=== PATIENT | male | born 1970 | race Caucasian/White ===

== ENCOUNTER → 2017-01-30 | Outpatient (CLI) | payer OTHER ==
[~2017-01-30] MED LIST: ESCITALOPRAM OX10 MG PO; MOTRIN800 MG PO; NAPROSYN500 MG PO; NAPROXEN500 MG PO; PERCOCET 5/31 TABLET PO; VITAMIN D35000 UNIT PO; ZOLOFT50 MG PO
== END | disposition home or self-care (01) ==
LOC: RAD 09:05
DX: Z02.71 Encounter for disability determination (principal)
CPT/HCPCS: 71020

== ENCOUNTER → 2017-02-06 | Outpatient (CLI) | payer OTHER | END | disposition home or self-care (01) | LOC: RES 07:45 | DX: Z02.71 Encounter for disability determination (principal) | CPT/HCPCS: 94010; 94760 ==

== ENCOUNTER 2017-02-26 19:13 | Inpatient (IN) | payer OTHER ==
[2017-02-26] VITALS (8 sets, daily range): BP systolic 137–171; BP diastolic 86–103
[~2017-02-26] VITALS: Ht 177.8 cm; Wt 144.6 kg
[2017-02-26 19:44] LABS: BASE EXCESS -11.6 mEq/L (-3 to +3); BICARBONATE 18.2 mEq/L (22-26); CARBOXY HGB 6.2 % (0-5); METHEMOGLOBIN 0.9 % (0-1.5); PCO2 56 mm Hg (35-45); PO2 145 mm Hg (80-100)
[2017-02-26 19:45] LABS: COMMENTS - BLOOD GASES c=<; DEVICE PB840; FI02 100 %; MECHANICAL RATE 18 resp/min; MODE AC; PEEP 5 CM/H20; SITE LB; TIDAL VOLUME 600 ML; pH 7.12 (7.35-7.45)
[2017-02-26 19:49] LABS: MCH 30.6 PG (29.0-34.0); MCHC 32.8 G/DL (30.0-36.0); MCV 93.3 FL (86-99); MEAN PLAT.VOLUME 12.4 uM^3 (9.0-12.4); NRBC (%) 0.7 /100 WBC (0-0); RBC DIS.WIDTH-CV 15.1 % (11.8-14.6); RBC DIS.WIDTH-SD 51.9 % (39-53); RED BLOOD COUNT 4.61 M/uL (4.00-5.50); WHITE BLOOD COUNT 21.2 K/uL (4.1-10.2)
[2017-02-26 19:59] LABS: CHLORIDE 104 mEq/L (99-109); POTASSIUM 3.4 mEq/L (3.7-5.4); SODIUM 140 mEq/L (136-147)
[2017-02-26 20:01] LABS: AMYLASE 183 IU/L (1-118)
[2017-02-26 20:02] LABS: GLUCOSE 204 mg/dL (70-99); PROTHROMBIN TIME 10.4 (9.2-11.2); PTT 24.5 (25-32)
[2017-02-26 20:03] LABS: ANION GAP 19 MEQ/L (2-14); TOTAL BILIRUBIN 0.2 mg/dL (0.0-1.0)
[2017-02-26 20:04] LABS: SERUM ETHYL ALCOHOL 82 mg/dL
[2017-02-26 20:05] LABS: GFR ESTIMATE (CALCULATED) 59 mL/min/
[2017-02-26 20:06] LABS: ADD MIUA? YES; BILIRUBIN NEGATIVE; BLOOD SMALL; COLOR YELLOW ((YELLOW)); GLUCOSE (STRIP) NEGATIVE; KETONES NEGATIVE; LEUKOCYTES NEGATIVE; NITRITE NEGATIVE; PROTEIN (STRIP) 100; SPECIFIC GRAVITY 1.006 (1.000-1.030); UROBILINOGEN 0.2 MG/DL (0.2-1.0)
[2017-02-26 20:06] LABS: ALKALINE PHOSPHATASE 104 IU/L (3-129)
[2017-02-26 20:07] LABS: DIRECT BILIRUBIN 0.1 mg/dL (0.0-0.3); UREA NITROGEN (BUN) 8 mg/dL (9-23)
[2017-02-26 20:09] LABS: SALICYLATE < 5.0 MG/DL (15-30)
[2017-02-26 20:10] LABS: LIPASE 337 U/L (1.0-51.0); TROP-I INTERPRETATION NEGATIVE; TROPONIN-I < 0.01 ng/mL (0.0-0.30)
[2017-02-26 20:13] LABS: AMPHETAMINE NEGATIVE (500 ng/mL); BARBITURATES NEGATIVE (200 ng/mL); BENZODIAZEPINES NEGATIVE (150 ng/mL); COCAINE NEGATIVE (150 ng/mL); INTERNAL CONTROLS VALID? YES; METHADONE NEGATIVE (200 ng/mL); METHAMPHETAMINE NEGATIVE (500 ng/mL); OPIATES (MORPHINE) NEGATIVE (100 ng/mL); OXYCODONE NEGATIVE (100 ng/mL); PHENCYCLIDINE NEGATIVE (25 ng/mL); PROPOXYPHENE NEGATIVE (300 ng/mL); THC CANNABINOIDS NEGATIVE (50 ng/mL); TRICYCLIC ANTIDEPRESSANTS NEGATIVE (300 ng/mL)
[2017-02-26 20:25] LABS: BACTERIA RARE /HPF; CASTS PRESENT /LPF; CRYSTALS PRESENT; EPITHELIAL CELLS 1+ /HPF; MUCUS NONE SEEN /LPF; RED BLOOD CELLS 0-5 /HPF (0-5); UCUL ADDED? NO
[2017-02-26 20:26] LABS: AMORPHOUS URATES CRYSTALS 3+; COARSE GRANULAR CASTS 0-5 /LPF; FINE GRANULAR CASTS 15-20 /LPF
[2017-02-26 20:47] LABS: ABS NEUTROPHIL COUNT 13.7; ANISOCYTOSIS 1+; ATYPICAL LYMPHOCYTE 2.3 %; BAND NEUTROPHILS 6.6 % (0-8.0); EOSINOPHIL ABS CT 0.1; EOSINOPHILS 0.5 % (0-5.0); HEMATOLOGY COMMENT 1 SN; INSTRUMENT ABS NEUTROPHIL CT 12.2 K/uL; LYMPHOCYTES 28.6 % (15.0-45.0); MACROCYTES 1+; METAMYELOCYTES 1.5 %; NUCLEATED RBC'S 1.4; PLATELET CLUMPS PRESENT - PLATELET COUNT APPEARS ADQ.; POLYCHROMASIA 1+; SEG.NEUTROPHILS 58.1 % (46.0-76.0)
[2017-02-26 22:13] LABS: MAGNESIUM 2.7 mg/dL (1.3-2.7)
[2017-02-26 23:29] LABS: POINT-OF-CARE METER ID UU14174217
[2017-02-26 23:36] LABS: METH RESISTANT S AUREUS PCR NEGATIVE (NEGATIVE)
[2017-02-26 23:38] LABS: PROBE CHECK PASS; SPECIMEN PROCESSING CONTROL PASS
[2017-02-27] VITALS (26 sets, daily range): BP systolic 100–146; BP diastolic 57–102
[2017-02-27 00:11] LABS: BASE EXCESS -8.9 mEq/L (-3 to +3); BICARBONATE 18.8 mEq/L (22-26); CARBOXY HGB 2.4 % (0-5); METHEMOGLOBIN 1.9 % (0-1.5); PCO2 46 mm Hg (35-45); PO2 132 mm Hg (80-100); pH 7.22 (7.35-7.45)
[2017-02-27 00:12] LABS: COMMENTS - BLOOD GASES A+C+; DEVICE 840; FI02 100 %; MECHANICAL RATE 18 resp/min; MODE AC; PEEP 10 CM/H20; SITE RR; TIDAL VOLUME 600 ML; TOTAL RESP RATE 35 resp/min
[2017-02-27 01:03] LABS: HEMATOCRIT 46.3 % (38.0-50.0); MCH 30.5 PG (29.0-34.0); MCHC 32.8 G/DL (30.0-36.0); MEAN PLAT.VOLUME 11.9 uM^3 (9.0-12.4); NRBC (%) 0.1 /100 WBC (0-0); PLATELET COUNT 192 K/uL (156-360); RBC DIS.WIDTH-CV 15.4 % (11.8-14.6); RBC DIS.WIDTH-SD 53.1 % (39-53); RED BLOOD COUNT 4.98 M/uL (4.00-5.50); WHITE BLOOD COUNT 26.3 K/uL (4.1-10.2)
[2017-02-27 01:12] LABS: INTER. NORMALIZED RATIO 1.1; PROTHROMBIN TIME 11.1 (9.2-11.2); PTT 26.6 (25-32)
[2017-02-27 01:13] LABS: CHLORIDE 110 mEq/L (99-109); POTASSIUM 3.4 mEq/L (3.7-5.4); SODIUM 140 mEq/L (136-147)
[2017-02-27 01:16] LABS: ANION GAP 10 MEQ/L (2-14)
[2017-02-27 01:19] LABS: GFR ESTIMATE (CALCULATED) 59 mL/min/
[2017-02-27 01:20] LABS: UREA NITROGEN (BUN) 11 mg/dL (9-23)
[2017-02-27 01:21] LABS: GLUCOSE 103 mg/dL (70-99)
[2017-02-27 01:25] LABS: TROP-I INTERPRETATION NEGATIVE; TROPONIN-I 0.05 ng/mL (0.0-0.30)
[2017-02-27 02:34] LABS: BASOPHIL COUNT 0.1 K/uL (0-0.1); EOSINOPHIL (%) 0 % (0-5); HEMATOLOGY COMMENT 1 SMEAR COMPATIBLE; IMMATURE GRANULOCYTE (%) 1.2 % (0.0-0.7); IMMATURE GRANULOCYTE COUNT 0.3 K/uL; INSTRUMENT ABS NEUTROPHIL CT 23.9 K/uL; LYMPHOCYTE COUNT 0.7 K/uL (1.0-2.8); MONOCYTE (%) 5.1 % (3-12); MONOCYTE COUNT 1.3 K/uL (0-0.8); NEUTROPHIL (%) 90.8 % (45-76); NEUTROPHIL COUNT 23.9 K/uL (1.8-6.4); PLAT.SUFFICIENCY ADEQUATE
[2017-02-27 05:22] LABS: BICARBONATE 16.6 mEq/L (22-26); CARBOXY HGB 2.1 % (0-5); METHEMOGLOBIN 1.7 % (0-1.5); PCO2 51 mm Hg (35-45); PO2 69 mm Hg (80-100); pH 7.12 (7.35-7.45)
[2017-02-27 05:23] LABS: COMMENTS - BLOOD GASES A+C+; DEVICE 840VENT; FI02 60 %; MECHANICAL RATE 18 resp/min; MODE AC; PEEP 10 CM/H20; SITE RR; TIDAL VOLUME 600 ML; TOTAL RESP RATE 32 resp/min
[2017-02-27 06:17] LABS: INTER. NORMALIZED RATIO 1.1; PROTHROMBIN TIME 10.7 (9.2-11.2); PTT 27.2 (25-32)
[2017-02-27 06:30] LABS: TROP-I INTERPRETATION NEGATIVE; TROPONIN-I 0.03 ng/mL (0.0-0.30)
[2017-02-27 06:49] LABS: HEMATOCRIT 47.2 % (38.0-50.0); MCH 30.1 PG (29.0-34.0); MCHC 31.6 G/DL (30.0-36.0); MCV 95.4 FL (86-99); MEAN PLAT.VOLUME 12.3 uM^3 (9.0-12.4); NRBC (%) 0.1 /100 WBC (0-0); PLATELET COUNT 185 K/uL (156-360); RBC DIS.WIDTH-CV 15.2 % (11.8-14.6); RBC DIS.WIDTH-SD 53.6 % (39-53); RED BLOOD COUNT 4.95 M/uL (4.00-5.50); WHITE BLOOD COUNT 29.1 K/uL (4.1-10.2)
[2017-02-27 07:19] LABS: ANION GAP 16 MEQ/L (2-14); CHLORIDE 109 MEQ/L (99-109); GFR ESTIMATE (CALCULATED) 54 mL/min/; GLUCOSE 131 mg/dL (70-99); MAGNESIUM 2.5 mg/dl (1.3-2.7); SAMPLE HEMOLYSIS CHECK 0; SAMPLE ICTERIC CHECK 0; SAMPLE LIPEMIA CHECK 0; SODIUM 143 MEQ/L (136-147); UREA NITROGEN (BUN) 13 mg/dL (9-23)
[2017-02-27 07:20] LABS: POTASSIUM 4.3 MEQ/L (3.7-5.4)
[2017-02-27 07:59] LABS: ABS NEUTROPHIL COUNT 26.3; ANISOCYTOSIS 1+; EOSINOPHIL ABS CT 0.3; INSTRUMENT ABS NEUTROPHIL CT 26.8 K/uL; METAMYELOCYTES 1.5 %; PLAT.SUFFICIENCY ADEQUATE; SEG.NEUTROPHILS 73.5 % (46.0-76.0)
[2017-02-27 13:35] LABS: TROP-I INTERPRETATION NEGATIVE; TROPONIN-I < 0.01 ng/mL (0.0-0.30)
[2017-02-27] MEDS ORDERED: TRILEPTAL300 MG PO (14:37)
[2017-02-27 14:38] LABS: HEMATOCRIT 42.6 % (38.0-50.0); MCH 30.9 PG (29.0-34.0); MCHC 32.4 G/DL (30.0-36.0); MCV 95.3 FL (86-99); MEAN PLAT.VOLUME 12.8 uM^3 (9.0-12.4); NRBC (%) 0.1 /100 WBC (0-0); PLATELET COUNT 152 K/uL (156-360); RBC DIS.WIDTH-CV 15.5 % (11.8-14.6); RBC DIS.WIDTH-SD 54.1 % (39-53); RED BLOOD COUNT 4.47 M/uL (4.00-5.50)
[2017-02-27] MEDS ORDERED: TOPAMAX25 MG PO (14:38)
[2017-02-27] MEDS ORDERED: ZANTAC150 MG PO (14:39)
[2017-02-27] MEDS ORDERED: WELLBUTRIN XL150 MG PO (14:39)
[2017-02-27] MEDS ORDERED: TYLENOL REGULA325 MG PO (14:40)
[2017-02-27] MEDS ORDERED: VENTOLIN HFA18 GM IH (14:41)
[2017-02-27 15:03] LABS: INTER. NORMALIZED RATIO 1.4; PROTHROMBIN TIME 14.9 (9.2-11.2); PTT 30.9 (25-32)
[2017-02-27 15:22] LABS: ANION GAP 15 MEQ/L (2-14); CHLORIDE 110 MEQ/L (99-109); GFR ESTIMATE (CALCULATED) > 59 mL/min/; GLUCOSE 171 mg/dL (70-99); MAGNESIUM 2.2 mg/dl (1.3-2.7); POTASSIUM 4.4 MEQ/L (3.7-5.4); SAMPLE HEMOLYSIS CHECK 0; SAMPLE ICTERIC CHECK 0; SAMPLE LIPEMIA CHECK 0; SODIUM 145 MEQ/L (136-147); UREA NITROGEN (BUN) 14 mg/dL (9-23)
[2017-02-27 15:39] LABS: ABS NEUTROPHIL COUNT 20.7; EOSINOPHIL ABS CT 0; INSTRUMENT ABS NEUTROPHIL CT 20.1 K/uL; LYMPHOCYTES 2.6 % (15.0-45.0); SEG.NEUTROPHILS 66.9 % (46.0-76.0)
[2017-02-27 16:09] LABS: BASE EXCESS -5.7 mEq/L (-3 to +3); BICARBONATE 19.4 mEq/L (22-26); CARBOXY HGB 1.8 % (0-5); METHEMOGLOBIN 1.6 % (0-1.5); PCO2 36 mm Hg (35-45); PO2 69 mm Hg (80-100); pH 7.34 (7.35-7.45)
[2017-02-27 16:11] LABS: DEVICE VENT; FI02 60 %; MECHANICAL RATE 24 resp/min; MODE AC; SITE A LINE; TOTAL RESP RATE 24 resp/min
[2017-02-27 16:12] LABS: PEEP 10 CM/H20; TIDAL VOLUME 600 ML
[2017-02-27 17:49] LABS: HEMATOCRIT 39.9 % (38.0-50.0); MCH 30.2 PG (29.0-34.0); MCHC 33.6 G/DL (30.0-36.0); RBC DIS.WIDTH-CV 15.2 % (11.8-14.6); RBC DIS.WIDTH-SD 49.9 % (39-53); RED BLOOD COUNT 4.43 M/uL (4.00-5.50); WHITE BLOOD COUNT 23.5 K/uL (4.1-10.2)
[2017-02-27 17:53] LABS: CHLORIDE 112 mEq/L (99-109); SODIUM 140 mEq/L (136-147)
[2017-02-27 17:54] LABS: MAGNESIUM 2.1 mg/dL (1.3-2.7); POTASSIUM 3.4 mEq/L (3.7-5.4)
[2017-02-27 17:55] LABS: GLUCOSE 131 mg/dL (70-99)
[2017-02-27 17:56] LABS: ANION GAP 5 MEQ/L (2-14)
[2017-02-27 17:59] LABS: GFR ESTIMATE (CALCULATED) > 59 mL/min/
[2017-02-27 18:00] LABS: UREA NITROGEN (BUN) 16 mg/dL (9-23)
[2017-02-27 18:01] LABS: INTER. NORMALIZED RATIO 1.1; PROTHROMBIN TIME 10.7 (9.2-11.2); PTT 28.9 (25-32)
[2017-02-27 18:06] LABS: TROP-I INTERPRETATION NEGATIVE; TROPONIN-I < 0.01 ng/mL (0.0-0.30)
[2017-02-27 18:29] LABS: EOSINOPHIL (%) 0 % (0-5); IMMATURE GRANULOCYTE (%) 0.8 % (0.0-0.7); IMMATURE GRANULOCYTE COUNT 0.2 K/uL; INSTRUMENT ABS NEUTROPHIL CT 21.6 K/uL; MEAN PLAT.VOLUME 12.3 uM^3 (9.0-12.4); MONOCYTE (%) 3.1 % (3-12); MONOCYTE COUNT 0.7 K/uL (0-0.8); NEUTROPHIL (%) 91.6 % (45-76); NEUTROPHIL COUNT 21.6 K/uL (1.8-6.4); PLAT.SUFFICIENCY ADEQUATE; PLATELET COUNT 164 K/uL (156-360)
[2017-02-27 18:30] LABS: MCV 90.1 FL (86-99)
[2017-02-27 23:20] LABS: BASE EXCESS -1.3 mEq/L (-3 to +3); BICARBONATE 22.7 mEq/L (22-26); CARBOXY HGB 1.6 % (0-5); COMMENTS - BLOOD GASES C+; DEVICE 840; FI02 60 %; MECHANICAL RATE 24 resp/min; METHEMOGLOBIN 1.5 % (0-1.5); MODE AC; PCO2 35 mm Hg (35-45); PEEP 10 CM/H20; PO2 63 mm Hg (80-100); SITE RR ALINE; TIDAL VOLUME 600 ML; TOTAL RESP RATE 24 resp/min; pH 7.42 (7.35-7.45)
[2017-02-28] VITALS: BP 126/73
[2017-02-28 01:03] LABS: POINT-OF-CARE METER ID UU14162636
[2017-02-28 01:23] LABS: HEMATOCRIT 37.6 % (38.0-50.0); MCH 30.3 PG (29.0-34.0); MCHC 33.8 G/DL (30.0-36.0); MCV 89.7 FL (86-99); MEAN PLAT.VOLUME 12.6 uM^3 (9.0-12.4); PLATELET COUNT 157 K/uL (156-360); RED BLOOD COUNT 4.19 M/uL (4.00-5.50); WHITE BLOOD COUNT 22.6 K/uL (4.1-10.2)
[2017-02-28 01:33] LABS: INTER. NORMALIZED RATIO 1.1; PROTHROMBIN TIME 11.4 (9.2-11.2); PTT 31.4 (25-32)
[2017-02-28 01:35] LABS: CHLORIDE 108 mEq/L (99-109); POTASSIUM 2.9 mEq/L (3.7-5.4); SODIUM 140 mEq/L (136-147)
[2017-02-28 01:36] LABS: MAGNESIUM 1.9 mg/dL (1.3-2.7)
[2017-02-28 01:37] LABS: GLUCOSE 148 mg/dL (70-99)
[2017-02-28 01:39] LABS: ANION GAP 11 MEQ/L (2-14)
[2017-02-28 01:41] LABS: GFR ESTIMATE (CALCULATED) > 59 mL/min/
[2017-02-28 01:42] LABS: UREA NITROGEN (BUN) 17 mg/dL (9-23)
[2017-02-28 03:10] LABS: ABS NEUTROPHIL COUNT 20.8; ACANTHOCYTES 1+; ANISOCYTOSIS 1+; BAND NEUTROPHILS 16.6 % (0-8.0); BASOPHILS 0.4 %; BURR CELLS 1+; EOSINOPHIL ABS CT 0; INSTRUMENT ABS NEUTROPHIL CT 20.6 K/uL; LYMPHOCYTES 2.2 % (15.0-45.0); MACROCYTES 1+; METAMYELOCYTES 2.2 %; PLAT.SUFFICIENCY ADEQUATE; PLATELET CLUMPS PRESENT - PLATELET COUNT APPEARS ADQ.; POIKILOCYTOSIS 1+; POLYCHROMASIA 1+; SEG.NEUTROPHILS 75.5 % (46.0-76.0); TEAR DROP CELLS 1+
[2017-02-28 04:00] VITALS: BP 132/71
[2017-02-28 06:08] LABS: INTER. NORMALIZED RATIO 1.1; PROTHROMBIN TIME 11.2 (9.2-11.2); PTT 31.3 (25-32)
[2017-02-28 06:09] LABS: BASE EXCESS -0.6 mEq/L (-3 to +3); BICARBONATE 23.1 mEq/L (22-26); CARBOXY HGB 1.9 % (0-5); COMMENTS - BLOOD GASES C+; DEVICE 840; FI02 60 %; METHEMOGLOBIN 1.6 % (0-1.5); MODE AC; PCO2 34 mm Hg (35-45); PO2 66 mm Hg (80-100); SITE RR ALINE; pH 7.44 (7.35-7.45)
[2017-02-28 06:10] LABS: MECHANICAL RATE 24 resp/min; PEEP 10 CM/H20; TIDAL VOLUME 600 ML; TOTAL RESP RATE 27 resp/min
[2017-02-28 06:14] LABS: POINT-OF-CARE METER ID UU14162636
[2017-02-28 06:59] LABS: HEMATOCRIT 35.5 % (38.0-50.0); MCHC 34.6 G/DL (30.0-36.0); MCV 89.4 FL (86-99); MEAN PLAT.VOLUME 12.5 uM^3 (9.0-12.4); PLATELET COUNT 143 K/uL (156-360); RBC DIS.WIDTH-CV 15.2 % (11.8-14.6); RBC DIS.WIDTH-SD 50.1 % (39-53); RED BLOOD COUNT 3.97 M/uL (4.00-5.50); WHITE BLOOD COUNT 22.6 K/uL (4.1-10.2)
[2017-02-28 07:17] LABS: ANION GAP 11 MEQ/L (2-14); CHLORIDE 109 MEQ/L (99-109); GFR ESTIMATE (CALCULATED) > 59 mL/min/; GLUCOSE 127 mg/dL (70-99); MAGNESIUM 2.4 mg/dl (1.3-2.7); SAMPLE HEMOLYSIS CHECK 0; SAMPLE ICTERIC CHECK 0; SAMPLE LIPEMIA CHECK 0; SODIUM 142 MEQ/L (136-147); UREA NITROGEN (BUN) 17 mg/dL (9-23)
[2017-02-28 07:19] LABS: POTASSIUM 3.6 MEQ/L (3.7-5.4)
[2017-02-28 08:00] VITALS: BP 139/90
[2017-02-28 08:00] LABS: EOSINOPHIL (%) 0 % (0-5); IMMATURE GRANULOCYTE COUNT 0.2 K/uL; INSTRUMENT ABS NEUTROPHIL CT 20.6 K/uL; MONOCYTE (%) 3.2 % (3-12); MONOCYTE COUNT 0.7 K/uL (0-0.8); NEUTROPHIL (%) 91.2 % (45-76); NEUTROPHIL COUNT 20.6 K/uL (1.8-6.4)
[2017-02-28 12:00] VITALS: BP 127/70
[2017-02-28 12:54] LABS: MCH 30.6 PG (29.0-34.0); MCHC 34.2 G/DL (30.0-36.0); MCV 89.6 FL (86-99); MEAN PLAT.VOLUME 12.5 uM^3 (9.0-12.4); PLATELET COUNT 152 K/uL (156-360); RBC DIS.WIDTH-CV 15.1 % (11.8-14.6); RBC DIS.WIDTH-SD 49.3 % (39-53); RED BLOOD COUNT 4.02 M/uL (4.00-5.50); WHITE BLOOD COUNT 23.4 K/uL (4.1-10.2)
[2017-02-28 13:04] LABS: CHLORIDE 111 mEq/L (99-109); INTER. NORMALIZED RATIO 1.1; POTASSIUM 3.2 mEq/L (3.7-5.4); PROTHROMBIN TIME 11.4 (9.2-11.2); PTT 31.5 (25-32); SODIUM 143 mEq/L (136-147)
[2017-02-28 13:05] LABS: MAGNESIUM 2.4 mg/dL (1.3-2.7)
[2017-02-28 13:06] LABS: GLUCOSE 142 mg/dL (70-99)
[2017-02-28 13:07] LABS: ANION GAP 13 MEQ/L (2-14)
[2017-02-28 13:10] LABS: GFR ESTIMATE (CALCULATED) > 59 mL/min/
[2017-02-28 13:11] LABS: UREA NITROGEN (BUN) 16 mg/dL (9-23)
[2017-02-28 13:29] LABS: POINT-OF-CARE METER ID UU13113731
[2017-02-28 14:02] LABS: ABS NEUTROPHIL COUNT 22.5; ANISOCYTOSIS 1+; ATYPICAL LYMPHOCYTE 0.4 %; BAND NEUTROPHILS 25.7 % (0-8.0); BURR CELLS 1+; EOSINOPHIL ABS CT 0; INSTRUMENT ABS NEUTROPHIL CT 21.4 K/uL; LYMPHOCYTES 1.3 % (15.0-45.0); MACROCYTES 1+; PLAT.SUFFICIENCY ADEQUATE; POIKILOCYTOSIS 1+; SEG.NEUTROPHILS 70.3 % (46.0-76.0); SPHEROCYTES 1+; TARGET CELLS 1+
[2017-02-28 14:12] LABS: BASE EXCESS -2.4 mEq/L (-3 to +3); BICARBONATE 21.2 mEq/L (22-26); CARBOXY HGB 1.6 % (0-5); METHEMOGLOBIN 1.5 % (0-1.5); PCO2 32 mm Hg (35-45); PO2 68 mm Hg (80-100); pH 7.43 (7.35-7.45)
[2017-02-28 14:13] LABS: DEVICE VENT; FI02 60 %; MECHANICAL RATE 24 resp/min; MODE AC; SITE A LINE; TOTAL RESP RATE 26 resp/min
[2017-02-28 14:14] LABS: PEEP 10 CM/H20; TIDAL VOLUME 600 ML
[2017-02-28 16:00] VITALS: BP 132/85
[2017-02-28 17:27] LABS: POINT-OF-CARE METER ID UU13113731
[2017-02-28 18:39] LABS: MCH 30.4 PG (29.0-34.0); MCHC 34.2 G/DL (30.0-36.0); MCV 89.1 FL (86-99); MEAN PLAT.VOLUME 12.9 uM^3 (9.0-12.4); PLATELET COUNT 151 K/uL (156-360); RBC DIS.WIDTH-CV 15.1 % (11.8-14.6); RBC DIS.WIDTH-SD 49.6 % (39-53); RED BLOOD COUNT 4.04 M/uL (4.00-5.50); WHITE BLOOD COUNT 22.6 K/uL (4.1-10.2)
[2017-02-28 18:50] LABS: CHLORIDE 110 mEq/L (99-109); POTASSIUM 3.7 mEq/L (3.7-5.4); SODIUM 141 mEq/L (136-147)
[2017-02-28 18:51] LABS: MAGNESIUM 2.3 mg/dL (1.3-2.7)
[2017-02-28 18:52] LABS: GLUCOSE 120 mg/dL (70-99)
[2017-02-28 18:53] LABS: INTER. NORMALIZED RATIO 1.1; PROTHROMBIN TIME 11.2 (9.2-11.2)
[2017-02-28 18:54] LABS: ANION GAP 10 MEQ/L (2-14)
[2017-02-28 18:56] LABS: GFR ESTIMATE (CALCULATED) > 59 mL/min/
[2017-02-28 18:57] LABS: UREA NITROGEN (BUN) 15 mg/dL (9-23)
[2017-02-28 19:00] VITALS: BP 132/85
[2017-02-28 21:50] LABS: ABS NEUTROPHIL COUNT 20.5; ANISOCYTOSIS 1+; BAND NEUTROPHILS 21.5 % (0-8.0); EOSINOPHIL ABS CT 0; INSTRUMENT ABS NEUTROPHIL CT 20.4 K/uL; LYMPHOCYTES 4.5 % (15.0-45.0); PLAT.SUFFICIENCY ADEQUATE
[2017-02-28 23:55] LABS: POINT-OF-CARE METER ID UU14174217
[2017-03-01 00:25] LABS: BASE EXCESS -0.6 mEq/L (-3 to +3); BICARBONATE 24.9 mEq/L (22-26); CARBOXY HGB 1.6 % (0-5); METHEMOGLOBIN 1.7 % (0-1.5); PCO2 43 mm Hg (35-45); PO2 70 mm Hg (80-100); SITE RR ALINE; pH 7.37 (7.35-7.45)
[2017-03-01 00:26] LABS: COMMENTS - BLOOD GASES C+; DEVICE 840; FI02 60 %; MECHANICAL RATE 24 resp/min; MODE AC; PEEP 10 CM/H20; TIDAL VOLUME 600 ML; TOTAL RESP RATE 26 resp/min
[2017-03-01 00:49] LABS: HEMATOCRIT 38.4 % (38.0-50.0); MCH 30.8 PG (29.0-34.0); MCHC 34.4 G/DL (30.0-36.0); MCV 89.7 FL (86-99); MEAN PLAT.VOLUME 12.6 uM^3 (9.0-12.4); PLATELET COUNT 175 K/uL (156-360); RBC DIS.WIDTH-CV 15.8 % (11.8-14.6); RBC DIS.WIDTH-SD 51.3 % (39-53); RED BLOOD COUNT 4.28 M/uL (4.00-5.50)
[2017-03-01 01:01] LABS: INTER. NORMALIZED RATIO 1.1; PROTHROMBIN TIME 10.9 (9.2-11.2); PTT 29.9 (25-32)
[2017-03-01 01:05] LABS: CHLORIDE 110 mEq/L (99-109); SODIUM 143 mEq/L (136-147)
[2017-03-01 01:06] LABS: MAGNESIUM 2.3 mg/dL (1.3-2.7)
[2017-03-01 01:08] LABS: GLUCOSE 136 mg/dL (70-99)
[2017-03-01 01:09] LABS: ANION GAP 11 MEQ/L (2-14)
[2017-03-01 01:11] LABS: GFR ESTIMATE (CALCULATED) 54 mL/min/
[2017-03-01 01:12] LABS: POTASSIUM 4.5 mEq/L (3.7-5.4); UREA NITROGEN (BUN) 17 mg/dL (9-23)
[2017-03-01 02:18] LABS: BASOPHIL COUNT 0.1 K/uL (0-0.1); EOSINOPHIL (%) 0 % (0-5); HEMATOLOGY COMMENT 1 SMEAR COMPATIBLE; IMMATURE GRANULOCYTE (%) 1.1 % (0.0-0.7); IMMATURE GRANULOCYTE COUNT 0.3 K/uL; INSTRUMENT ABS NEUTROPHIL CT 22.7 K/uL; LYMPHOCYTE COUNT 1.1 K/uL (1.0-2.8); MONOCYTE (%) 3.2 % (3-12); MONOCYTE COUNT 0.8 K/uL (0-0.8); NEUTROPHIL (%) 90.9 % (45-76); NEUTROPHIL COUNT 22.7 K/uL (1.8-6.4); PLAT.SUFFICIENCY ADEQUATE
[2017-03-01 03:00] VITALS: BP 166/92
[2017-03-01 04:00] VITALS: BP 184/91
[2017-03-01 05:00] LABS: MCH 30.3 PG (29.0-34.0); MCHC 33.7 G/DL (30.0-36.0); MEAN PLAT.VOLUME 12.5 uM^3 (9.0-12.4); NRBC (%) 0.1 /100 WBC (0-0); PLATELET COUNT 173 K/uL (156-360); RBC DIS.WIDTH-CV 15.8 % (11.8-14.6); RBC DIS.WIDTH-SD 51.7 % (39-53); RED BLOOD COUNT 4.22 M/uL (4.00-5.50)
[2017-03-01 05:08] LABS: INTER. NORMALIZED RATIO 1.1; PROTHROMBIN TIME 10.9 (9.2-11.2); PTT 29.4 (25-32)
[2017-03-01 05:10] LABS: CHLORIDE 109 mEq/L (99-109); POTASSIUM 4.5 mEq/L (3.7-5.4); SODIUM 143 mEq/L (136-147)
[2017-03-01 05:11] LABS: MAGNESIUM 2.2 mg/dL (1.3-2.7)
[2017-03-01 05:12] LABS: GLUCOSE 142 mg/dL (70-99)
[2017-03-01 05:14] LABS: ANION GAP 9 MEQ/L (2-14)
[2017-03-01 05:16] LABS: GFR ESTIMATE (CALCULATED) 54 mL/min/
[2017-03-01 05:17] LABS: UREA NITROGEN (BUN) 18 mg/dL (9-23)
[2017-03-01 06:09] LABS: EOSINOPHIL (%) 0 % (0-5); HEMATOLOGY COMMENT 1 SMEAR COMPATIBLE; IMMATURE GRANULOCYTE (%) 1.3 % (0.0-0.7); IMMATURE GRANULOCYTE COUNT 0.3 K/uL; INSTRUMENT ABS NEUTROPHIL CT 21.9 K/uL; LYMPHOCYTE COUNT 0.9 K/uL (1.0-2.8); MONOCYTE (%) 3.4 % (3-12); MONOCYTE COUNT 0.8 K/uL (0-0.8); NEUTROPHIL (%) 91.3 % (45-76); NEUTROPHIL COUNT 21.9 K/uL (1.8-6.4); PLAT.SUFFICIENCY ADEQUATE
[2017-03-01 06:18] LABS: POINT-OF-CARE METER ID UU14174217
[2017-03-01 10:00] VITALS: BP 131/94
[2017-03-01 11:07] LABS: BASE EXCESS 3.9 mEq/L (-3 to +3); BICARBONATE 31.4 mEq/L (22-26); CARBOXY HGB 1.9 % (0-5); COMMENTS - BLOOD GASES A+; DEVICE 840; METHEMOGLOBIN 1.7 % (0-1.5); PCO2 61 mm Hg (35-45); PO2 65 mm Hg (80-100); SITE ALINE; pH 7.32 (7.35-7.45)
[2017-03-01 11:08] LABS: FI02 70 %; MODE SPONT; PEEP 5 CM/H20; PRES. SUPPORT 15 CM/H2O; TOTAL RESP RATE 17 resp/min
[2017-03-01 12:07] LABS: POINT-OF-CARE METER ID UU13113803
[2017-03-01 12:43] LABS: HEMATOCRIT 35.4 % (38.0-50.0); MCH 29.9 PG (29.0-34.0); MCHC 32.8 G/DL (30.0-36.0); MCV 91.2 FL (86-99); MEAN PLAT.VOLUME 13.2 uM^3 (9.0-12.4); NRBC (%) 0.2 /100 WBC (0-0); PLATELET COUNT 151 K/uL (156-360); RBC DIS.WIDTH-CV 16.1 % (11.8-14.6); RBC DIS.WIDTH-SD 53.6 % (39-53); RED BLOOD COUNT 3.88 M/uL (4.00-5.50); WHITE BLOOD COUNT 19.6 K/uL (4.1-10.2)
[2017-03-01 12:51] LABS: CHLORIDE 112 mEq/L (99-109); POTASSIUM 4.4 mEq/L (3.7-5.4); SODIUM 148 mEq/L (136-147)
[2017-03-01 12:52] LABS: MAGNESIUM 2.3 mg/dL (1.3-2.7)
[2017-03-01 12:53] LABS: GLUCOSE 125 mg/dL (70-99)
[2017-03-01 12:55] LABS: ANION GAP 9 MEQ/L (2-14)
[2017-03-01 12:57] LABS: GFR ESTIMATE (CALCULATED) 50 mL/min/
[2017-03-01 12:58] LABS: UREA NITROGEN (BUN) 18 mg/dL (9-23)
[2017-03-01 13:03] LABS: INTER. NORMALIZED RATIO 1.1; PROTHROMBIN TIME 10.7 (9.2-11.2); PTT 30.9 (25-32)
[2017-03-01 13:21] LABS: TOTAL BILIRUBIN 0.3 mg/dL (0.0-1.0)
[2017-03-01 13:22] LABS: ALKALINE PHOSPHATASE 76 IU/L (3-129)
[2017-03-01 13:24] LABS: DIRECT BILIRUBIN 0.2 mg/dL (0.0-0.3)
[2017-03-01 14:24] LABS: EOSINOPHIL (%) 0.1 % (0-5); IMMATURE GRANULOCYTE (%) 1.7 % (0.0-0.7); IMMATURE GRANULOCYTE COUNT 0.3 K/uL; INSTRUMENT ABS NEUTROPHIL CT 17.5 K/uL; LYMPHOCYTE COUNT 1.1 K/uL (1.0-2.8); MONOCYTE (%) 3.3 % (3-12); MONOCYTE COUNT 0.6 K/uL (0-0.8); NEUTROPHIL (%) 89.2 % (45-76); NEUTROPHIL COUNT 17.5 K/uL (1.8-6.4)
[2017-03-01 17:40] LABS: POINT-OF-CARE METER ID UU14174217
[2017-03-01 22:00] VITALS: BP 90/60
[2017-03-01 22:29] LABS: BASE EXCESS 9.1 mEq/L (-3 to +3); BICARBONATE 32.7 mEq/L (22-26); CARBOXY HGB 1.5 % (0-5); METHEMOGLOBIN 1.4 % (0-1.5)
[2017-03-01 22:30] LABS: COMMENTS - BLOOD GASES C+; DEVICE 840; MECHANICAL RATE 24 resp/min; MODE AV; PCO2 40 mm Hg (35-45); PEEP 5 CM/H20; PO2 114 mm Hg (80-100); SITE A-LINE; TIDAL VOLUME 600 ML; TOTAL RESP RATE 24 resp/min; pH 7.52 (7.35-7.45)
[2017-03-01 22:31] LABS: FI02 100 %
[2017-03-01 23:00] VITALS: BP 90/60
== END 2017-03-02 01:18 | DRG 917 ==
LOC: EME 19:13 → EDBD 19:13 → EME 19:13 → EDOF 20:20 → 4WEST 20:20
PROVIDERS: Emergency Medicine; Internal Medicine Pulmonary Disease
PROC: 5A12012 Performance of Cardiac Output, Single, Manual (ICD-10-PCS; 2017-02-26)
PROC: 5A1945Z Respiratory Ventilation, 24-96 Consecutive Hours (ICD-10-PCS; 2017-02-26)
PROC: 05HM33Z Insertion of Infusion Device into Right Internal Jugular Vein, Percutaneous Approach (ICD-10-PCS; principal; 2017-02-28)
PROC: 06HM33Z Insertion of Infusion Device into Right Femoral Vein, Percutaneous Approach (ICD-10-PCS; principal; 2017-02-28)
PROC: 03HB33Z Insertion of Infusion Device into Right Radial Artery, Percutaneous Approach (ICD-10-PCS; principal; 2017-02-28)
DX: T40.7X2A Poisoning by cannabis (derivatives), intentional self-harm, initial encounter (principal); J96.00 Acute respiratory failure, unspecified whether with hypoxia or hypercapnia; R40.20 Unspecified coma; G93.6 Cerebral edema; N17.9 Acute kidney failure, unspecified; G93.1 Anoxic brain damage, not elsewhere classified; Z68.42 Body mass index [BMI] 45.0-49.9, adult; E87.2 Acidosis; F33.9 Major depressive disorder, recurrent, unspecified; J98.11 Atelectasis; J81.1 Chronic pulmonary edema; J90 Pleural effusion, not elsewhere classified; E66.2 Morbid (severe) obesity with alveolar hypoventilation; E87.4 Mixed disorder of acid-base balance; I46.9 Cardiac arrest, cause unspecified; F19.10 Other psychoactive substance abuse, uncomplicated; F10.129 Alcohol abuse with intoxication, unspecified; F12.129 Cannabis abuse with intoxication, unspecified; F17.210 Nicotine dependence, cigarettes, uncomplicated; I10 Essential (primary) hypertension; J44.9 Chronic obstructive pulmonary disease, unspecified; R73.9 Hyperglycemia, unspecified; E78.5 Hyperlipidemia, unspecified; R68.0 Hypothermia, not associated with low environmental temperature; R40.2432 Glasgow coma scale score 3-8, at arrival to emergency department; Y90.4 Blood alcohol level of 80-99 mg/100 ml; J45.909 Unspecified asthma, uncomplicated; Z82.49 Family history of ischemic heart disease and other diseases of the circulatory system
CPT/HCPCS: 36600; 70450; 71010; 80048; 80048 91; 80076; 81003; 82150; 82330; 82803; 82948; 83605; 83690; 83735; 84100; 84484; 85025; 85025 91; 85610; 85730; 86900; 86901; 87040; 87070; 87205; 87641; 93005; 94002; 94003; 94640; 94640 76; 95819; 99202; 99281; 99285; C1788; G0480; J1165; J1650; J1815; J1940; J1953; J2060; J2543; J2704; J3010; J3260; J3370; J3475; J3480; J7030; J7040; J7050; J7070; J7120; S0028